=== PATIENT | male | born 1950 | race Caucasian/White ===

== ENCOUNTER → 2017-03-27 | Outpatient (CLI) | payer MEDICARE | LOC: HEART 5 13:17 | DX: R06.02 Shortness of breath (principal) | CPT/HCPCS: 94060; 94729 ==

== ENCOUNTER → 2017-04-05 | Outpatient (CLI) | payer MEDICARE | LOC: RT 12:09 | DX: J44.9 Chronic obstructive pulmonary disease, unspecified (principal); E66.9 Obesity, unspecified; R09.02 Hypoxemia; J98.11 Atelectasis | CPT/HCPCS: 36600; 71020; 82803 ==

== ENCOUNTER → 2017-04-10 | Outpatient (CLI) | payer MEDICARE | LOC: SLEEP 09:34 | DX: G47.33 Obstructive sleep apnea (adult) (pediatric) (principal) | CPT/HCPCS: 95810 ==

== ENCOUNTER → 2017-04-13 | Outpatient (CLI) | payer MEDICARE | LOC: HEART 5 09:55 | DX: I27.2 Other secondary pulmonary hypertension (principal) | CPT/HCPCS: 93306 ==